=== PATIENT | male | born 1985 | race Two or more races ===

== ENCOUNTER 2017-09-17 11:51 | Emergency (ER) | payer BC ==
[~2017-09-17] VITALS: Ht 190.5 cm; Wt 138.3 kg
[2017-09-17 11:52] VITALS: BP 168/87
[2017-09-17] MEDS ORDERED: HYDROcodone/APAP 5/325 TABLET ONE (12:48)
[2017-09-17] MEDS ORDERED: LIDOCAINE 1%, 10ML ONE (12:48)
[2017-09-17] MEDS ORDERED: DIPH,PERTUSS(ACELL),TET VAC/PF 0.5 ML IM-VACC ONE ×2 (12:48→13:00)
[2017-09-17] MEDS ORDERED: LIDOCAINE 1%, 10ML INFIL ONE (13:00)
[2017-09-17] MEDS ORDERED: HYDROcodone/APAP 5/325 TABLET PO ONE (13:00)
== END 2017-09-17 13:59 | disposition home or self-care (01) ==
LOC: ED 13:53
DX: L05.01 Pilonidal cyst with abscess (principal)
CPT/HCPCS: 10080; 90471; 90715; 99284; J3490